=== PATIENT | male | born 1960 | race Caucasian/White ===

== ENCOUNTER 2020-01-03 10:46 | Outpatient (CLI) | payer BC, SELFPAY ==
--- NOTE | ~2020-01-03 | US_ITS ---
EXAMINATION: US renal BI DATE: 01/03/2020 11:16 INDICATION: Abnormal findings of blood chemistry TECHNIQUE: Multiple grayscale and Doppler ultrasound images of the kidneys were obtained. COMPARISON: 01/11/2015 FINDINGS: The right kidney measures 10.8 x 4.6 x 5.9 cm. The left kidney measures 11.6 x 6.3 x 7.2 cm . The kidneys demonstrate normal parenchymal echogenicity. There is no hydronephrosis. The bladder is normal. IMPRESSION: 1. Normal kidneys without hydronephrosis. Reviewed, dictated and finalized at location A.
== END 2020-01-03 10:47 | disposition home or self-care (01) ==
PROVIDERS: PCP Internal Medicine; Visit Provider Internal Medicine
DX: R79.89 Other specified abnormal findings of blood chemistry (principal)
CPT/HCPCS: 76775

== ENCOUNTER 2020-05-25 12:51 | Outpatient (NON) | payer BC, SELFPAY ==
[2020-05-26 03:01] LABS: SARS-CoV-2 RNA PCR Positive
== END 2020-05-25 12:52 ==
PROVIDERS: PCP Internal Medicine; Visit Provider Internal Medicine
DX: U07.1 COVID-19 (principal)
CPT/HCPCS: 87635; C9803; U0003

== ENCOUNTER 2020-06-16 06:47 | Outpatient (NON) | payer BC, SELFPAY ==
[2020-06-16 22:14] LABS: SARS-CoV-2 RNA PCR Negative
== END 2020-06-16 06:48 ==
PROVIDERS: PCP Internal Medicine; Visit Provider Surgery
DX: Z20.828 Contact with and (suspected) exposure to other viral communicable diseases (principal)
CPT/HCPCS: 87635; C9803; U0003

== ENCOUNTER 2020-07-15 15:09 | Emergency (ER) | payer BC, SELFPAY ==
--- NOTE | ~2020-07-15 | XR_ITS ---
EXAMINATION: XR ribs LT 2V w CXR 2V DATE: 07/15/2020 15:36 INDICATION: Left chest pain. Fall. TECHNIQUE: Frontal and lateral views of the chest and 2 views of the left ribs on a total of 6 radiog raphs were obtained. COMPARISON: Chest 2 views 04/20/14, chest CT 10/19/2018 FINDINGS: CHEST TWO VIEWS: There is mild atelectasis at the lung bases. No pleural effusion or pneumothorax. Th e heart size is normal. LEFT RIBS: There is a fracture of left sixth rib. IMPRESSION: 1. Left sixth rib fracture. Reviewed, dictated and finalized at location A. E GRAINER IMPRESSION: 1. Left sixth rib fracture.
[2020-07-15 15:11] VITALS: BP 92/53; PULSE 65; RESP 18; TEMP 36.4; O2SAT 100
--- NOTE | 2020-07-15 16:13 | ED.FALL ---
HPI - Fall General Chief Complaint: Fall Stated Complaint: fall/left rib pain Time Seen by Provider: 07/15/20 15:52 History of Present Illness HPI Narrative: 60 yo male presents to the ED from home for a rib injury. He stumble backwards into a fence post a bout 2 hours ago. He struck the left side of his chest on the post and felt a pop when he hit it. The pain is mild at rest. Worse with moving and breathing. He also has pain in the shoulder, but this is not out of the ordinary. No SOB, fever. Related Data Home Medications Medication Instructions Recorded Confirmed Calcium 600 + D(3) 1 cap PO DAILY 07/08/19 06/19/20 cyanocobalamin (vitamin B-12) 1,000 mcg PO DAILY 07/08/19 06/19/20 famotidine 20 mg PO HS 07/08/19 06/19/20 lamotrigine 400 mg PO HS 07/08/19 06/19/20 lysine 500 mg PO DAILY 07/08/19 06/19/20 Glyxambi 1 tablet PO DAILY 08/08/19 06/19/20 omega-3 fatty acids 1,000 mg 1,000 mg PO BID 09/02/19 06/19/20 capsule potassium chloride 10 mEq 10 meq PO DAILY 09/02/19 06/19/20 capsule,extended release Allergies Allergy/AdvReac Type Severity Reaction Status Date / Time No Known Allergies Allergy Verified 07/15/20 15:14 Review of Systems Review of Systems: All systems reviewed & are unremarkable except as noted in HPI and below Constitutional: Constitutional: Denies fever(s) Cardiovascular: Cardiovascular: Reports chest pain Respiratory: Respiratory: Denies dyspnea Gastrointestinal: Gastrointestinal: Denies abdominal pain and Denies nausea Musculoskeletal: Musculoskeletal: Denies back pain Neurologic: Denies dizziness, Denies numbness and Denies weakness [facility] Past Medical History Medical History Abscess Anxiety Anxiety with depression BMI 37.0-37.9, adult BPH (benign prostatic hyperplasia) CKD (chronic kidney disease) Colon cancer screening Depression Diabetes DJD of AC (acromioclavicular) joint DM type 2 (diabetes mellitus, type 2) Elevated homocysteine Encounter for routine adult health examination without abnormal findings Encounter for special screening examination for neoplasm of prostate Fatty liver Follow up Fullness of neck GERD (gastroesophageal reflux disease) HTN (hypertension) Hypercholesterolemia Hyperlipidemia Hypogonadism Insomnia Left shoulder pain Obesity On residential drug therapy ERICKA on CPAP ERICKA on CPAP Pedal edema Rotator cuff tear Surgical History Surgical History S/P left rotator cuff repair 07/20/[address] Marmolejo S/P rotator cuff repair Subcutaneous mass of right lower extremity Family History Family History Grandparent Hypertension Mother Family history of rheumatoid arthritis Father Family history of alcoholism Other Family history of arthritis Social History Social History Smoking packs per day: 1 Smoking cigarettes per day: 20.0 Years smoked: 25 Smoking pack-years: 25.00 Smoking status: Former smoker Tobacco type: cigarettes Second hand tobacco smoke exposure: No Smoking end date: 08/17/97 Alcohol intake: current Drinks per week: 3 Substance use: never Additional living arrangements comments: He lives with his Sissy in [place], [place] with their 3 cats. Additional occupation/education comments: Works for the [email or web address] Gender identity (if verbalized by the patient): Male Spiritual care concerns: No Agree to blood products: Yes Exam Const: General: no acute distress and alert Nutritional Appearance: well nourished Orientation/consciousness: patient oriented x3 HENMT: Head: normal to inspection Neck: Neck: normal visual inspection Chest: Chest palpation & inspection: tenderness rib (left middle ribs) Resp: Effort & Inspection: normal respiratory effort Auscultation:
[2020-07-15] MEDS: HYDROcodone/acetaminophen (*CRX) 5-325 MG TABLET 2 TAB PO (16:28)
[2020-07-15] MEDS: IBUPROFEN 600 MG TABLET PO (16:28)
== END 2020-07-15 17:13 | disposition home or self-care (01) ==
PROVIDERS: Emergency Provider Emergency Medicine; PCP Internal Medicine
DX: S22.32XA Fracture of one rib, left side, initial encounter for closed fracture (principal); N40.0 Benign prostatic hyperplasia without lower urinary tract symptoms; E11.22 Type 2 diabetes mellitus with diabetic chronic kidney disease; I12.9 Hypertensive chronic kidney disease with stage 1 through stage 4 chronic kidney disease, or unspecified chronic kidney disease; N18.9 Chronic kidney disease, unspecified; Z79.84 Long term (current) use of oral hypoglycemic drugs; M19.019 Primary osteoarthritis, unspecified shoulder; K21.9 Gastro-esophageal reflux disease without esophagitis; E78.00 Pure hypercholesterolemia, unspecified; R78.5 Finding of other psychotropic drug in blood; G47.33 Obstructive sleep apnea (adult) (pediatric); E66.9 Obesity, unspecified; Z68.34 Body mass index [BMI] 34.0-34.9, adult; Z87.891 Personal history of nicotine dependence; W22.8XXA Striking against or struck by other objects, initial encounter
CPT/HCPCS: 71046; 71100; 99283; A9270

== ENCOUNTER 2020-11-20 15:14 | Emergency (ER) | payer BC, SELFPAY ==
--- NOTE | ~2020-11-20 | XR_ITS ---
EXAMINATION: XR chest 1V portable INDICATION: Fever and shortness of breath TECHNIQUE: Portable AP chest at 1636 hours COMPARISON: 07/15/2020 FINDINGS: The lungs are free of acute opacities. There is no pleural effusion or pneumothorax. The ca rdiomediastinal silhouette is normal. The visualized bones and soft tissues are unremarkable. IMPRESSION: 1. No acute cardiopulmonary abnormality. Reviewed, dictated and finalized at location A.
[2020-11-20 15:29] VITALS: BP 117/65; PULSE 82; RESP 20; TEMP 37.6; O2SAT 100
--- NOTE | 2020-11-20 15:52 | ED.FEVER ---
HPI - Fever General Chief Complaint: Fever Stated Complaint: fever/chills Time Seen by Provider: 11/20/20 15:52 History of Present Illness HPI Narrative: Intermittent fever, chills for he past 3 days. Temperature up to 102 at home. Associated with fatigue, nausea, urinary frequency. Was feeling better yesterday and went on a 6 mile hike. His symptoms returned this morning. He got his second COVID-19 2 weeks ago. No sick contacts. Related Data Home Medications Medication Instructions Recorded Confirmed Calcium 600 + D(3) 1 cap PO DAILY 07/08/19 08/28/20 cyanocobalamin (vitamin B-12) 1,000 mcg PO DAILY 07/08/19 08/28/20 famotidine 20 mg PO HS 07/08/19 08/28/20 lamotrigine 400 mg PO HS 07/08/19 08/28/20 lysine 500 mg PO DAILY 07/08/19 08/28/20 Glyxambi 1 tablet PO DAILY 08/08/19 08/28/20 omega-3 fatty acids 1,000 mg 1,000 mg PO BID 09/02/19 08/28/20 capsule Allergies Allergy/AdvReac Type Severity Reaction Status Date / Time No Known Allergies Allergy Verified 08/27/20 15:09 Review of Systems Review of Systems: All systems reviewed & are unremarkable except as noted in HPI and below Constitutional: Constitutional: Reports chills, Reports fatigue and Reports fever(s) Eyes: Eyes: Reports no additional eye complaints ENT: Denies sore throat Cardiovascular: Cardiovascular: Denies chest pain Respiratory: Respiratory: Denies dyspnea Gastrointestinal: Gastrointestinal: Reports nausea Genitourinary: Genitourinary: Reports no additional male genitourinary complaints Musculoskeletal: Musculoskeletal: Reports back pain Neurologic: Denies confusion, Denies dizziness, Reports headache(s) and Denies weakness [facility] Past Medical History Medical History Abscess Anxiety Anxiety with depression BMI 37.0-37.9, adult BPH (benign prostatic hyperplasia) CKD (chronic kidney disease) Colon cancer screening Depression Diabetes DJD of AC (acromioclavicular) joint DM type 2 (diabetes mellitus, type 2) Elevated homocysteine Encounter for routine adult health examination without abnormal findings Encounter for special screening examination for neoplasm of prostate Fatty liver Follow up Fullness of neck GERD (gastroesophageal reflux disease) HTN (hypertension) Hypercholesterolemia Hyperlipidemia Hypogonadism Insomnia Left shoulder pain Obesity On fpc drug therapy ERICKA on CPAP ERICKA on CPAP Pedal edema Rotator cuff tear Surgical History Surgical History S/P left rotator cuff repair 07/20/[address] Marmolejo S/P rotator cuff repair Subcutaneous mass of right lower extremity Family History Family History Grandparent Hypertension Mother Family history of rheumatoid arthritis Father Family history of alcoholism Other Family history of arthritis Social History Social History Smoking packs per day: 1 Smoking cigarettes per day: 20.0 Years smoked: 25 Smoking pack-years: 25.00 Smoking status: Former smoker Tobacco type: cigarettes Second hand tobacco smoke exposure: No Smoking end date: 08/17/97 Alcohol intake: current Drinks per week: 3 Substance use: never Additional living arrangements comments: He lives with his Sissy in [place], [place] with their 3 cats. Additional occupation/education comments: Works for the [employer] Gender identity (if verbalized by the patient): Male Spiritual care concerns: No Agree to blood products: Yes Exam Const: General: no acute distress and alert Orientation/consciousness: patient oriented x3 Other: Shivering HENMT: Mouth: Yes dry mucous membranes Neck: Neck: normal visual inspection Resp: Effort & Inspection: normal respiratory effort Auscultation: clear to auscultation bilaterally Cardio: Rat
[2020-11-20 16:01] VITALS: BP 124/78; PULSE 82; RESP 19; TEMP 37.9; O2SAT 100
[2020-11-20 16:30] LABS: Hematocrit 43.2 % (42.0-52.0); Hemoglobin 13.7 g/dL (14.0-18.0); Immature Platelet Fraction Pct 8.4 % (0.9-11.2); Mean Corpuscular HGB Conc 31.7 g/dl (32-36); Mean Corpuscular Hemoglobin 33.2 pg (26-34); Mean Corpuscular Volume 104.6 fl (80-100); Mean Platelet Volume 11.6 fl (7.4-10.4); Platelet Count Result 136 k/mm3 (150-375); Red Blood Count 4.13 M/mm3 (4.6-6.20); Red Cell Distribution Width 12.4 % (11.5-14.5); White Blood Count 7.2 K/mm3 (4.5-10.0)
[2020-11-20 16:32] LABS: Add Urine Microscopic? YES; Appearance Urine Clear (Clear); Bacteria Urine Trace /hpf; Bilirubin Urine Negative (Negative); Blood Urine Negative (Negative); Color Urine Yellow (Yellow); Glucose Urine UA 3+ mg/dL (Negative); Ketones Urine Negative (Negative); Leukocyte Esterase Ur Negative LEU/UL (Negative); Nitrate Urine Negative (Negative); Protein Urine Negative (Negative); Specific Grav Ur 1.021 (1.001-1.035); Urobilinogen Urine Negative mg/dL (<2.0); WBC Urine 0-3 /hpf
[2020-11-20 16:38] LABS: Partial Thromboplastin Time 36.1 SECONDS (22.3-36.8); Prothrombin Time 13.3 Seconds (11.1-14.7)
[2020-11-20 16:41] LABS: Lactic Acid Reflex 1.5 mmol/L (0.7-2.1)
[2020-11-20 16:53] LABS: Band Neutrophils Percent 12 % (0-6); Eosinophils Absolute Manual 0.28 K/mm3 (0.02-0.5); Eosinophils Percent Manual 4 % (0-4); Lymphocytes Absolute Manual 0.64 K/mm3 (1.1-4.5); Monocytes Absolute Manual 0.64 K/mm3 (0.1-0.90); Monocytes Percent Manual 9 % (3-9); Neutrophils Absolute Manual 5.61 K/mm3 (1.3-6.7); Neutrophils Percent Manual 66 % (46-73); Total Cells Counted 100
[2020-11-20 16:54] LABS: Platelet Estimate Decreased (Adequate)
[2020-11-20 17:20] LABS: Alanine Aminotransferase 93 U/L (4-50); Albumin Level 3.9 g/dL (3.5-5.1); Alkaline Phosphatase 158 U/L (38-126); Anion Gap 8 mmol/L (8-16); Aspartate Amino Transferase 76 U/L (17-59); Bilirubin,Total 0.8 mg/dL (0.2-1.3); Blood Urea Nitrogen 26 mg/dL (9-20); CRP 6.4 mg/dL (<1.0); Calcium 8.8 mg/dL (8.4-10.2); Carbon Dioxide 27 mmol/L (22-30); Chloride 101 mmol/L (98-107); Estimated CRCL calculation 65 ml/min; Estimated Glomerular Filt Rate 45; Glucose 212 mg/dL (75-110); Potassium 4.5 mmol/L (3.4-5.0); Sodium 136 mmol/L (137-145)
[2020-11-20 17:35] VITALS: BP 116/98; PULSE 75; RESP 30; O2SAT 100
[2020-11-21 17:07] LABS: SARS-CoV-2 RNA PCR Negative
== END 2020-11-20 18:59 | disposition home or self-care (01) ==
PROVIDERS: Emergency Provider Emergency Medicine; PCP Internal Medicine
DX: Z20.822 Contact with and (suspected) exposure to COVID-19 (principal); R50.9 Fever, unspecified; F41.9 Anxiety disorder, unspecified; F32.9 Major depressive disorder, single episode, unspecified; I12.9 Hypertensive chronic kidney disease with stage 1 through stage 4 chronic kidney disease, or unspecified chronic kidney disease; E11.22 Type 2 diabetes mellitus with diabetic chronic kidney disease; N18.9 Chronic kidney disease, unspecified; E78.5 Hyperlipidemia, unspecified; G47.30 Sleep apnea, unspecified
CPT/HCPCS: 36415; 71045; 80053; 81001; 83605; 85025; 85055; 85610; 85730; 86140; 87040; 87804; 99283; C9803; U0003; U0005

== ENCOUNTER 2020-11-29 09:19 | Outpatient (CLI) | payer BC, SELFPAY ==
--- NOTE | ~2020-11-29 | US_ITS ---
EXAMINATION: US abdomen limited DATE: 11/29/2020 09:44 INDICATION: Hepatic steatosis. Other specified abnormal findings of blood chemistry. TECHNIQUE: Multiple grayscale and Doppler ultrasound images of the abdomen were obtained. COMPARISON: Chest CT 10/19/2018 FINDINGS: The pancreas is obscured by bowel gas. The liver is normal without focal lesion. No liver s urface nodularity. There is normal flow in main portal vein. The gallbladder is normal in size. No ga llstones or gallbladder wall thickening. There was no sonographic Back sign. The common duct is nor mal and measures 5 mm. IMPRESSION: 1. Normal right upper quadrant ultrasound. Reviewed, dictated and finalized at location A.
== END 2020-11-29 09:20 | disposition home or self-care (01) ==
LOC: ANHIMG 09:20
PROVIDERS: PCP Internal Medicine; Visit Provider Internal Medicine
DX: R79.89 Other specified abnormal findings of blood chemistry (principal); K76.0 Fatty (change of) liver, not elsewhere classified
CPT/HCPCS: 76705

== ENCOUNTER → 2021-05-31 06:27 | Outpatient (CLI) | payer BC, SELFPAY ==
[2021-05-31 17:46] LABS: SARS-CoV-2 RNA PCR Negative
== END ==
PROVIDERS: PCP Internal Medicine; Visit Provider Internal Medicine
DX: R05.9 Cough, unspecified (principal); Z20.822 Contact with and (suspected) exposure to COVID-19
CPT/HCPCS: C9803; U0003; U0005

== ENCOUNTER → 2021-07-08 09:32 | Outpatient (CLI) | payer BC, SELFPAY ==
--- NOTE | ~2021-07-08 | MR_ITS ---
EXAMINATION: MR brain/brain stem wo/w con DATE: 07/08/2021 10:21 INDICATION: Other symptoms and signs involving cognitive function. TECHNIQUE: Magnetic resonance imaging (MRI) of the brain and brainstem was performed without and with 20 mL MultiHance intravenous contrast. Sequences included sagittal and axial T1-weighted FSE, axial diffusion-weighted FS EPI, axial T2*-weighted GRE, axial T2-weighted FLAIR Propeller, and axial T2-we ighted Propeller. Postcontrast sequences included axial and coronal T1-weighted FSE. Apparent diffusi on coefficient (ADC) maps were created. COMPARISON: Brain MRI 05/22/2010 FINDINGS: There is no intracranial hemorrhage, acute infarction, or abnormal intracranial mass lesion . The ventricles are normal in size. There is mild mucosal thickening in the paranasal sinuses. There is a mucous retention cyst in sphenoid sinus. There are likely changes of ocular lens replacement nieves rgeries. The mastoid air cells are normal. IMPRESSION: 1. Normal brain. Reviewed, dictated and finalized at location B. ED MILK MASHER IMPRESSION: 1. Normal brain.
[2021-07-08 09:57] LABS: Estimated Glomerular Filt Rate 57
== END ==
PROVIDERS: PCP Internal Medicine; Visit Provider Internal Medicine
DX: R41.89 Other symptoms and signs involving cognitive functions and awareness (principal)
CPT/HCPCS: 70553; A9577

== ENCOUNTER → 2023-04-10 07:45 | Outpatient (CLI) | payer BC, SELFPAY ==
--- NOTE | ~2023-04-10 | MR_ITS ---
EXAMINATION: MR brain/brain stem wo/w con DATE: 04/10/2023 08:25 INDICATION: Other symptoms and signs involving cognition. TECHNIQUE: Magnetic resonance imaging (MRI) of the brain and brainstem was performed without and with 20 mL MultiHance intravenous contrast. COMPARISON: Brain MRI 07/08/2021 FINDINGS: There is no intracranial hemorrhage, acute infarction, or abnormal intracranial mass lesion . The ventricles are normal in size. There is mild mucosal thickening in the paranasal sinuses. There are likely changes of ocular lens replacement surgeries. The mastoid air cells are normal. IMPRESSION: 1. Normal brain. Reviewed, dictated and finalized at location A. IMPRESSION: 1. Normal brain.
== END ==
PROVIDERS: PCP Internal Medicine; Visit Provider Internal Medicine
DX: R41.89 Other symptoms and signs involving cognitive functions and awareness (principal); G25.0 Essential tremor
CPT/HCPCS: 70553; A9577

== ENCOUNTER 2024-07-25 08:51 | Outpatient (CLI) | payer BC, SELFPAY ==
--- NOTE | ~2024-07-25 | XR_ITS ---
Clinical Indication: Cough PA and lateral views of the chest: Comparison: 11/20/2020 Findings: Possible focal hazy airspace opacity right lung base. Left lung clear.. Cardiomediastinal silhouette is within normal limits. Bones and soft tissues are unremarkable. Impression: Possible focal hazy right basilar pneumonia. Reviewed, dictated and finalized at location . ID DERIVATIVES TRADER Impression: Possible focal hazy right basilar pneumonia.
== END 2024-07-25 08:52 | disposition home or self-care (01) ==
PROVIDERS: PCP Internal Medicine; Visit Provider Internal Medicine
DX: R05.9 Cough, unspecified (principal)
CPT/HCPCS: 71046

== ENCOUNTER 2025-01-23 11:43 | Outpatient (CLI) | payer BC, SELFPAY ==
--- NOTE | ~2025-01-23 | XR_ITS ---
AP lateral views of the left hip Clinical history: Pain Findings: No acute fracture or dislocation is seen. Osseous alignment is anatomic. Left hip joint is intact. Soft tissues are unremarkable. Impression: No significant abnormality is seen. Reviewed, dictated and finalized at location M. Impression: No significant abnormality is seen.
== END 2025-01-23 11:44 | disposition home or self-care (01) ==
LOC: MICIMG 11:44
PROVIDERS: PCP Internal Medicine; Visit Provider Internal Medicine
DX: M25.552 Pain in left hip (principal)
CPT/HCPCS: 73502

== ENCOUNTER 2025-03-03 07:03 | Outpatient (CLI) | payer BC, SELFPAY ==
--- NOTE | ~2025-03-03 | MR_ITS ---
MRI of the left hip Clinical history: Pain Technique: Coronal T1-weighted, T2-weighted, and proton-density fat-sat images, and axial T1-weighted and proton-density fat-sat images were acquired through the pelvis. Coronal T2-weighted images and c oronal, axial, and sagittal proton-density fat-sat images were acquired through the left hip. Findings: There is no fracture or avascular necrosis. Bone marrow signals the proximal femora and pel yony bones are essentially unremarkable. There is moderate diffuse chondromalacia the superior aspects of both hip joints. No significant joint effusion. No left acetabular labral tear evident. Visualized musculature about the pelvis and left hip is unremarkable. No muscle atrophy or edema seen . Visualized tendons are intact. No soft tissue mass or fluid collection seen. IMPRESSION: Mild degenerative change of both hip joints, as detailed above. Reviewed, dictated and finalized at [facility].
== END 2025-03-03 07:04 | disposition home or self-care (01) ==
LOC: MICIMG 07:04
PROVIDERS: PCP Internal Medicine; Visit Provider Internal Medicine
DX: M16.0 Bilateral primary osteoarthritis of hip (principal)
CPT/HCPCS: 73721

== ENCOUNTER 2025-03-20 12:30 | Outpatient (RCR) | payer BC, SELFPAY ==
--- NOTE | 2025-02-10 14:40 | OPREHPOC ---
Outpatient Therapy Plan of Care This is a Multidisciplinary Plan of Care that may contain components documented by all disciplines (PT, OT, and ST.) ST Goal 1 Goal / Goal Update The patient will participate in home programming to improve carry over/generalization of skills to home environment. Target Visit [address] Problem #[address] Goal 1 Goal / Goal Update Voice 1. The patient will learn techniques to improve vocal hygiene and eliminate abusive behaviors. 2. The patient will be provided written HEP with neck and shoulder exercises to increase muscle awareness and relaxation of laryngeal tension. 3. The patient will learn diaphragmatic breathing techniques and methods of easy airflow release during speech 80% minimal cues. 4. The patient will engage in exercises to promote resonance and release of laryngeal tension 80% minimal cues. 5. The patient will improve self monitoring of vocal quality, onset of phonation, volume, and laryngeal tension during conversation voice use 80 % minimal cues. Target Visit 10
--- NOTE | 2025-02-10 14:40 | STOPEVAL1 ---
Assessment and note entered by Alondra Oleary, QUOTE CLERK Evaluation Information Assessment Status Evaluation Diagnosis R49.0 J38.7 Onset 3 months Subjective Information The patient is a 64 year old male referred by his ENT due to chronic hoarseness and dysphonia over the past 3 months. The patient does report a very demanding job that requires significant phone and [email or web address] teams calls daily. He also reports some family issues that have caused personal stress that started approximately 3 months prior. He takes famotidine for heartburn. He reports drinking significant amounts of water daily, and very few caffeinated drinks. He is a former smoker . Reported Pain Level Pain Score 0: Self Report Assessment ST Clinical Summary The patient is a 64 year old male referred by his ENT due to chronic hoarseness and dysphonia over the past 3 months. The patient does report a very demanding job that requires significant phone and [email or web address] teams calls daily. He also reports some family issues that have caused personal stress that started approximately 3 months prior. He takes famotidine for heartburn. He reports drinking significant amounts of water daily, and very few caffeinated drinks. He is a former smoker . The patient appears to use normal diaphragmatic- abdominal breathing. Able to sustain an /e/ 10 counts without loss of breath. Difficulty sustaining open vowels /a/ /o/ breaks after 5 seconds sustained phonation. The patient presents with mild-moderate vocal harshness/hoarseness and breathy vocal quality. More predominant with increased speech production length. Breath support can fluctuate for sustained speech. Average vocal volume is 60 decibels at simple phrase and sentence level. Difficult to measure pitch with pitch meter at his present voicing. Sustains /ah/ x 7 seconds with 60 decibels sustains /e/ 10 seconds 70 decibels. Speech intervention recommended for dysphonia. Implementing techniques for cervical relaxation to promote laryngeal relaxation, respiration exercises/diaphragmatic breathing to facilitate easy voice production, phonation exercises for easy onset of voice, and resonance to focus some vibration away from the larynx during phonation. Results of the evaluation were reviewed with the patient as well as treatment recommendations. The patient was provided an initial HEP to initiate. Plan of Care Interventions Treatment of Voice ST Services Indicated Yes Treatment Frequency and 1x week x 10 visits. Duration These treatments will address the objective and functional deficits as defined above. The patient will be advanced safely and appropriately in order for the patient to progress towards his/her prior level of function. Additional exercises will be introduced and as well as a comprehensive home exercise program upon discharge, if needed, ?to ensure carryover of functional gains achieved in the clinic. This treatment plan has been reviewed and agreement upon by the patient.
--- NOTE | 2025-02-27 11:57 | PCSTNOTE ---
Patient called & cancelled scheduled appointment this date due to family emergency
--- NOTE | 2025-05-01 13:01 | STOPDC ---
Assessment and note entered by SERENITY Young Evaluation Information Assessment Status Discharge - Pt Not Present Assessment ST Clinical Summary The patient is a 64 year old male referred by his ENT due to chronic hoarseness and dysphonia over the past 3 months. The patient does report a very demanding job that requires significant phone and [employer] teams calls daily. He also reports some family issues that have caused personal stress that started approximately 3 months prior. He takes famotidine for heartburn. He reports drinking significant amounts of water daily, and very few caffeinated drinks. He is a former smoker . The patient appears to use normal diaphragmatic- abdominal breathing. Able to sustain an /e/ 10 counts without loss of breath. Difficulty sustaining open vowels /a/ /o/ breaks after 5 seconds sustained phonation. The patient presents with mild-moderate vocal harshness/hoarseness and breathy vocal quality. More predominant with increased speech production length. Breath support can fluctuate for sustained speech. Average vocal volume is 60 decibels at simple phrase and sentence level. Difficult to measure pitch with pitch meter at his present voicing. Sustains /ah/ x 7 seconds with 60 decibels sustains /e/ 10 seconds 70 decibels. Speech intervention recommended for dysphonia. Implementing techniques for cervical relaxation to promote laryngeal relaxation, respiration exercises/diaphragmatic breathing to facilitate easy voice production, phonation exercises for easy onset of voice, and resonance to focus some vibration away from the larynx during phonation. Results of the evaluation were reviewed with the patient as well as treatment recommendations. The patient was provided an initial HEP to initiate. 05/01/25 Discharge Note: the patient was showing good utilization of techniques to reduce laryngeal tension and improve vocal quality. However was noting limited progress after 5 treatments. The ORCHARD MANAGER contact the patient's ENT who recommended a consult with a specialist in [place]. ORCHARD MANAGER contacted the patient following his consult in [facility]. The patient reports surgical options being planned at this time. Agreeable with discharging speech services. Plan of Care ST Services Indicated No
== END 2025-05-01 13:46 | disposition home or self-care (01) ==
LOC: ANHST 12:30
PROVIDERS: PCP Internal Medicine; Visit Provider Otolaryngology
DX: R49.0 Dysphonia (principal); J38.7 Other diseases of larynx
CPT/HCPCS: 92507; 92524